=== PATIENT | male | born 1975 | race Caucasian/White ===

== ENCOUNTER 2020-02-29 15:43 | Emergency (ER) | payer OTHER ==
[2020-02-29] MEDS ORDERED: Lidocaine 1% 30 ML SDV INJECT ONE (16:00)
[2020-02-29] MEDS ORDERED: Bupivacaine 0.5% 30 ML SDV INJECT PRN (16:00)
--- NOTE | 2020-02-29 16:03 | EDM.PDOC ---
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 His prior to arrival patient was at work at [email or web address] in [place] when he was working on a mechanical J that pinched the skin between his thumb and second finger left hand. This was not a crushing type injury. It is more of a pinching injury to soft tissue between the thumb and second finger of the left hand. This happened prior to arrival. The patient is unaware of when his last tetanus shot was. He denies any paresthesias change in the functionality of the use of his left hand. He has not taken anything for pain prior to arrival. Not long after the injury to his left hand he has severe pain in his left hand. He feels weak dizzy and lightheaded. He has no chest pain shortness of breath or difficulty breathing. No cough or congestion. No fever no chills. Left Hand Pain Score (Numeric/FACES): 8 - Related Data Allergies Allergy/AdvReac Type Severity Reaction Status Date / Time Penicillins Allergy Hives Verified 02/29/20 16:50 Home Meds: Home Meds lisinopriL [Lisinopril] 10 mg PO DAILY 02/29/20 [History] Review of Systems - Review of Systems Review Of Systems: Comprehensive ROS is negative, except as noted in HPI. ED EXAM, GENERAL - Physical Exam Exam: See Below Free Text/Narrative:: The patient upon arrival he is alert and oriented. He has pale cool clammy diaphoretic and he is mildly hypotensive. This is most likely due to a vagal response and injury to his hand. Exam Limited By: No Limitations General Appearance: Alert, WD/WN, Mild Distress Respiratory/Chest: No Respiratory Distress, Lungs Clear, Chest Non-Tender Cardiovascular: Normal Peripheral Pulses Peripheral Pulses: 2+: Radial (L), Radial (R) Extremities: Normal Range of Motion, No Pedal Edema, Normal Capillary Refill. No: Normal Inspection (Inspection of the left hand in the webbing between the thumb and second of the left hand in the soft tissue there is an approximate 3.5 cm transverse laceration that extends into the subcutaneous tissue. There is no foreign material or contamination identified. There is no active bleeding. The patient is able to flex and extend at all the joints of the MCP PIP DIP and IP joints of the left hand. His CMS is intact appropriately the left hand as well. The rest the left hand is atraumatic. This minimally extends into the palmar surface of the left hand.) Neurological: Alert, Oriented, CN II-XII Intact Psychiatric: Normal Affect, Normal Mood Skin Exam: Cool, Diaphoretic, Pallor Lymphatic: No Adenopathy ED TRAUMA EXTREMITY PROCEDURES - Laceration/Wound Repair Left Hand Lac/Wound Length In cm: 3.5 Appearance: Subcutaneous, Linear, Clean Distal NVT: Neuro & Vascular Intact, No Tendon Injury Anesthetic Type: Local Local Anesthesia - Lidocaine (Xylocaine): 1% Plain Local Anesthesia - Bupivicaine (Marcaine): 0.5% Plain Local Anesthetic Volume: Other (7cc) Skin Prep: Chlorhexidine (Hibiciens), Saline Saline Irrigation (cc's): 500 Exploration/Debridement/Repair: Wound Explored (Laceration not extend into the subcutaneous tissue but does not extend into the deeper structures fascia. There is no muscle or tendon injury.), In a Bloodless Field, Explored to Base, No Foreign Material Found Closed With: Sutures Suture Size: 4-0 Suture Type: Nylon Sterile Dressing Applied: Nurse Tetanus Status Addressed: Yes Course - Vital Signs Last Recorded V/S: Last Vital Signs Temp 95 F L 02/29/20 15:45 Pulse 64 02/29/20 15:45 Resp 16 02/29/20 15:45 BP 89/46 L 02/29/20 15:45 Pulse Ox 96 02/29/20 15:45 - Orders/Labs/Meds Meds: Medications Discontinued Medications Generic Name Dose Route Start Last Admin Trade Name Freq PRN Reason Stop Dose Admin Bupivacaine HCl 30 ml 02/29/20 16:00 02/29/20 16:29 Marcaine 0.5% INJECT 30 ml ASDIRECTED PRN Administration Other Diphtheria/Tetanus/Acell Pertussis 0.5 ml 02/29/20 16:05 02/29/20 16:28 Adacel IM 02/29/20 16:06 0.5 ml .ONCE ONE Administration Lidocaine HCl 30 ml 02/29/20 16:00 02/29/20 16:29 Xylocaine-Mpf 1% INJECT 02/29/20 16:01 30 ml ONETIME ONE Administration - Re-Assessments/Exams Free Text/Narrative Re-Assessment/Exam: Please see the procedure note for the repair of this laceration. Tetanus was updated today. The patient's blood pressure returned to normal skin was pink warm and dry her this is most likely due to a vasovagal type syndrome following the pain and the incident itself. Discharge directions as below are explained to the patient is comfortable plan his questions are answered. Departure - Departure Time of Disposition: 16:50 Disposition: Home, Self-Care 01 Clinical Impression: Laceration of hand Qualifiers: Encounter type: initial encounter Foreign body presence: without foreign body Laterality: left Qualified Code(s): S61.412A - Laceration without foreign body of left hand, initial encounter - Discharge Information Instructions: Sutures, Gifford, or Adhesive Wound Closure, [id number] Referrals: PCP,None [Primary Care Provider] - Forms: ED Return to Work/School Form Additional Instructions: Tylenol and or Ibuprofen as needed for pain. Wash laceration twice daily with Ana Cristina dish soap and water. Running water over will be okay no soaking in the water. Watch for signs of infection. Bacitracin and bandage until healed. Sutures out in 10 days. Okay to return to work on 03/01/20 Return to the ED if new or worsening symptoms.
[2020-02-29] MEDS ORDERED: Diphtheria,Pertussis(Acell),Tetanus Vaccine 0.5 ML Syringe IM ONE (16:05)
--- NOTE | 2020-02-29 16:50 | CR ---
[id number] RAD/RAD Hand Left 2V EXAM: RAD Hand Left 2V CLINICAL DATA: TRAUMA COMPARISON: NO PREVIOUS SIMILAR EXAM IS AVAILABLE. FINDINGS: No fracture or dislocation is seen. There is a bone island of the distal left fifth phalanx There is no radiopaque foreign body in the soft tissues. There is no air in the soft tissues. There is no cortical thickening or periosteal reaction either. IMPRESSION: NEGATIVE PLAIN FILM EXAM. John Todd MD 02/29/20 [id number] Thank you for allowing us to participate in the care of your patient.
== END 2020-02-29 17:00 | disposition home or self-care (01) ==
LOC: VM.ED 15:43
DX: S61.412A Laceration without foreign body of left hand, initial encounter (principal); Z88.0 Allergy status to penicillin; Z79.899 Other long term (current) drug therapy; Z23 Encounter for immunization; W31.9XXA Contact with unspecified machinery, initial encounter; Y99.0 Civilian activity done for income or pay
CPT/HCPCS: 12002; 73120; 90471; 90715; 99283; J2001; J3490

== ENCOUNTER 2020-06-06 11:12 | Emergency (ER) | payer OTHER ==
--- NOTE | 2020-06-06 11:44 | EDM.PDOC ---
ED HPI GENERAL MEDICAL PROBLEM - General Time Seen by Provider: 06/06/20 11:20 Source of Information: Reports: Patient History Limitations: Reports: No Limitations - History of Present Illness INITIAL COMMENTS - FREE TEXT/NARRATIVE: Pt. was sent to ER from work. Pt. works at [employer]. He states that he had his blood pressure checked at work today, and the blood pressure was quite high at 180-190 systolic. Pt. was diaphoretic, he states due to heat in the building. Clinic was contacted regarding an appointment to address his BP and they were concerned about this. He states that he is otherwise symptom free. Denies any chest pain, shortness of breath, headache, or lightheadedness. No nausea/vomiting. At his last clinic visit, his lisinopril was increased to 30mg daily. It looks as though he has problems with compliance in taking his medication in the past, but states that he has been taking it religiously since his last clinic appointment and states that he took it today. Onset: Today Location: Reports: Generalized - Related Data Allergies Allergy/AdvReac Type Severity Reaction Status Date / Time Penicillins Allergy Hives Verified 06/06/20 11:42 Home Meds: Home Meds lisinopriL [Lisinopril] 20 mg PO DAILY 02/29/20 [History] Past Medical History Cardiovascular History: Reports: Hypertension ED ROS GENERAL - Review of Systems Review Of Systems: See Below Constitutional: Reports: No Symptoms HEENT: Reports: No Symptoms Respiratory: Reports: No Symptoms Cardiovascular: Reports: Blood Pressure Problem Endocrine: Reports: No Symptoms GI/Abdominal: Reports: No Symptoms : Reports: No Symptoms Musculoskeletal: Reports: No Symptoms Skin: Reports: Diaphoresis (Diaphoretic at work, patient relates was due to temp of building.) Neurological: Reports: No Symptoms Psychiatric: Reports: No Symptoms Hematologic/Lymphatic: Reports: No Symptoms ED EXAM, GENERAL - Physical Exam Exam: See Below Exam Limited By: No Limitations General Appearance: Alert, WD/WN, No Apparent Distress Eye Exam: Bilateral Eye: EOMI, PERRL Head: Atraumatic, Normocephalic Neck: Normal Inspection, Supple, Non-Tender, Full Range of Motion Respiratory/Chest: No Respiratory Distress, Lungs Clear, Normal Breath Sounds, No Accessory Muscle Use, Chest Non-Tender Cardiovascular: Normal Peripheral Pulses, Regular Rate, Rhythm, No Edema, No JVD, No Murmur Peripheral Pulses: 4+: Radial (L) GI/Abdominal: Soft, Non-Tender, No Distention, No Mass (Male) Exam: Deferred Rectal (Males) Exam: Deferred Back Exam: Normal Inspection, Full Range of Motion Extremities: Normal Inspection, Normal Range of Motion, Non-Tender, No Pedal Edema, Normal Capillary Refill Neurological: Alert, Oriented, CN II-XII Intact, Normal Cognition, Normal Gait, Normal Reflexes, No Motor/Sensory Deficits Psychiatric: Normal Affect, Normal Mood Skin Exam: Warm, Dry, Intact, Normal Color, No Rash Lymphatic: No Adenopathy #1 Interpretation Rhythm: NSR [place]: Normal P-Wave: Present QRS: Normal ST-T: Normal QT: Normal Course - Vital Signs Last Recorded V/S: Last Vital Signs Temp 36.8 C 06/06/20 11:12 Pulse 77 06/06/20 11:12 Resp 18 06/06/20 11:12 BP 160/106 H 06/06/20 12:14 Pulse Ox 96 06/06/20 11:12 - Orders/Labs/Meds Orders: Active Orders 24 hr Category Date Time Status EKG Documentation Completion [RC] STAT Care 06/06/20 11:19 Active Labs: Laboratory Tests 06/06/20 06/06/20 Range/Units 11:30 11:30 WBC 9.1 (4.0-10.0) x10^3/uL RBC 5.29 (4.5-6.0) x10^6/uL Hgb 16.0 (14.0-18.0) g/dL Hct 47.8 (40.0-52.0) % MCV 90.4 (78.0-93.0) fL MCH 30.2 (26.0-32.0) pg MCHC 33.5 (32.0-36.0) g/dL RDW Coeff of Vega 15.0 (10.0-15.0) % Plt Count 191 (130-400) x10^3/uL Neut % (Auto) 77.5 (50.0-80.0) % Lymph % (Auto) 14.3 L (25.0-50.0) % [place] % (Auto) 7.1 (2.0-11.0) % Eos % (Auto) 0.9 (0.0-4.0) % Baso % (Auto) 0.2 (0.2-1.2) % Sodium 142 (136-145) mmol/L Potassium 3.7 (3.5-5.1) mmol/L Chloride 104 (98-107) mmol/L Carbon Dioxide 27 (21-32) mmol/L Anion Gap 14.7 (5-15) mmol/L BUN 9 (7-18) mg/dL Creatinine 1.0 (0.70-1.30) mg/dL Est Cr Clr Drug Dosing TNP Estimated GFR (MDRD) > 60 Glucose 124 H (74-106) mg/dL Calcium 8.8 (8.5-10.1) mg/dL Corrected Calcium 8.96 (8.5-10.1) mg/dL Total Bilirubin 0.8 (0.2-1.0) mg/dL AST 21 (15-37) U/L ALT 46 (16-63) U/L Alkaline Phosphatase 80 (46-116) U/L Troponin I < 0.017 (<=0.056) ng/mL Total Protein 7.4 (6.4-8.2) g/dL Albumin 3.8 (3.4-5.0) g/dL Globulin 3.6 Albumin/Globulin Ratio 1.06 TSH, Ultra Sensitive 0.835 (0.358-3.74) uIU/mL - Re-Assessments/Exams Free Text/Narrative Re-Assessment/Exam: 06/06/20 12:28 Pt. was observed and BP was monitored. BP in ER was consistently in the 160/100 range. EKG and labs were all within normal limits. Departure - Departure Time of Disposition: 12:35 Disposition: Home, Self-Care 01 Clinical Impression: Hypertension - Discharge Information Instructions: Hypertension, Adult, [id number], Amlodipine Oral Tablets Referrals: Maddison Joshua PA-C [Primary Care Provider] - Forms: ED Department Discharge Additional Instructions: Continue with lisinopril at 30mg daily Start norvasc 5mg once daily Recheck BP in clinic in 14 days Return to ER if you have any chest pain, headache or other worrisome signs/symptoms. Sepsis Event Note (ED) - Focused Exam Vital Signs: Vital Signs Temp Pulse Resp BP Pulse Ox 06/06/20 12:14 160/106 H 06/06/20 11:53 170/99 H 06/06/20 11:12 36.8 C 77 18 164/101 H 96 - Problem List Review Problem List Initiated/Reviewed/Updated: Yes - My Orders Last 24 Hours: My Active Orders 06/06/20 11:19 EKG Documentation Completion [RC] STAT - Assessment/Plan Last 24 Hours: My Active Orders 06/06/20 11:19 EKG Documentation Completion [RC] STAT Plan: Did briefly discuss this patient with his PCP, Maddison Joshua PA-C. Will start the patient on amlodipine 5mg once daily in addition to the lisinopril. Advised him to follow-up in clinic in 2 weeks for blood pressure recheck. Return to ER if he has any chest pain, shortness of breath, lightheadedness, headache, or other worrisome signs/symptoms.
[2020-06-06 12:08] LABS: CHLORIDE,CL 104 mmol/L (98-107); SODIUM,NA 142 mmol/L (136-145)
[2020-06-06 12:10] LABS: ANION GAP 14.7 mmol/L (5-15)
== END 2020-06-06 12:40 | disposition home or self-care (01) ==
LOC: VM.ED 11:12
DX: I10 Essential (primary) hypertension (principal); Z79.899 Other long term (current) drug therapy; Z88.0 Allergy status to penicillin
CPT/HCPCS: 36415; 80053; 84443; 84484; 85025; 93005; 93010; 99283-25; 99284

== ENCOUNTER 2023-12-17 11:04 | Emergency (ER) | payer BC, OTHER ==
[2023-12-17 11:34] LABS: BASOPHILS PERCENT AUTO 0.4 % (0.2-1.2); EOSINOPHILS ABSOLUTE AUTO 0.1 x10^3/uL (0.0-0.5); HEMATOCRIT 53.5 % (40.0-52.0); HEMOGLOBIN 18.1 g/dL (14.0-18.0); IMMATURE GRAN ABSOLUTE AUTO 0.01 x10^3/uL (0.00-0.07); LYMPHOCYTES ABSOLUTE AUTO 1.1 x10^3/uL (1.0-4.8); MEAN CORPUSCULAR HEMOGLOBIN 30.4 pg (26.0-32.0); MEAN CORPUSCULAR HGB CONC 33.8 g/dL (32.0-36.0); MEAN CORPUSCULAR VOLUME 89.9 fL (78.0-93.0); MONOCYTES ABSOLUTE AUTO 0.4 x10^3/uL (0.0-0.8); MONOCYTES PERCENT AUTO 7.1 % (2.0-11.0); NEUTROPHILS ABSOLUTE AUTO 3.4 x10^3/uL (1.8-7.7); NEUTROPHILS PERCENT AUTO 68.3 % (50.0-80.0); PLATELET COUNT,PLT 169 x10^3/uL (130-400); RED BLOOD CELL COUNT 5.95 x10^6/uL (4.5-6.0); WHITE BLOOD CELL COUNT,WBC 4.9 x10^3/uL (4.0-10.0)
[2023-12-17 12:00] LABS: A/G RATIO 1.11; ALANINE AMINOTRANSFERASE,ALT 55 U/L (16-63); ALBUMIN 3.9 g/dL (3.4-5.0); ALKALINE PHOSPHATASE 94 U/L (46-116); ASPARTATE AMNIOTRANSFERASE,AST 34 U/L (15-37); BILIRUBIN TOTAL 0.6 mg/dL (0.2-1.0); BLOOD UREA NITROGEN,BUN 8 mg/dL (7-18); CALCIUM 9.2 mg/dL (8.5-10.1); CARBON DIOXIDE,CO2 30 mmol/L (21-32); CHLORIDE,CL 103 mmol/L (98-107); CREATININE 0.9 mg/dL (0.70-1.30); EST CRCL DRUG DOSING (CG) 101.39 mL/min; GLUCOSE RANDOM 210 mg/dL (70-99); POTASSIUM,K 4.5 mmol/L (3.5-5.1); PROTEIN TOTAL,TP 7.4 g/dL (6.4-8.2); SODIUM,NA 139 mmol/L (136-145)
[2023-12-17 12:02] LABS: ANION GAP 10.5 mmol/L (5-15); ESTIMATED GFR 104 mL/min (>=60)
== END 2023-12-17 12:10 | disposition home or self-care (01) ==
LOC: VM.ED 11:04 → SUPCPDRO 11:04 → VM.ED 12:10
DX: R20.2 Paresthesia of skin (principal); I10 Essential (primary) hypertension; Z88.0 Allergy status to penicillin; Z79.899 Other long term (current) drug therapy
CPT/HCPCS: 36415; 80053; 82947; 84484; 85025; 93005; 93010; 99284